=== PATIENT | female | born 1985 | race Caucasian/White ===

== ENCOUNTER 2016-12-11 09:11 | Emergency (ER) | payer OTHER ==
[~2016-12-11] VITALS: Ht 170.2 cm; Wt 73.0 kg
[2016-12-11 09:15] VITALS: Ht 170.2 cm; Wt 73.0 kg
[2016-12-11] MEDS ORDERED: morphine 4 MG/ML VIAL IV STA (09:48)
[2016-12-11] MEDS ORDERED: ONDANSETRON 4 MG INJ IV STA (09:48)
[2016-12-11] MEDS ORDERED: SOD CHLORIDE 0.9% 1,000 ML IV STA (09:48)
[2016-12-11 10:10] LABS: ADD SCAN DIFF NO
[2016-12-11 10:17] LABS: ADD UMIC YES; URINE BILIRUBIN (Dip) NEGATIVE (NEGATIVE); URINE BLOOD (Dip) TRACE (NEGATIVE); URINE COLOR LT. YELLOW (YELLOW); URINE GLUCOSE (Dip) NEGATIVE (NEGATIVE); URINE KETONES (Dip) NEGATIVE (NEGATIVE); URINE LEUKOCYTE ESTERASE (Dip) NEGATIVE (NEGATIVE); URINE NITRITE (Dip) NEGATIVE (NEGATIVE); URINE TOTAL PROTEIN (Dip) NEGATIVE (NEGATIVE); URINE UROBILINOGEN (Dip) 0.2 E.U./dL (0.1-1.0)
--- NOTE | 2016-12-11 10:20 | ERD ---
ER Documentation Chief Complaint Date/Time DATE: 12/11/16 TIME: 10:18 Chief Complaint RLQ ABD PAIN WITH NAUSEA SINCE YESTERDAY HPI 31-year-old female otherwise healthy comes emergency department with right lower quadrant abdominal pain with nausea that started last night. He describes as constant pain, moderate, localized, she reports that she has had some tactile fevers at home. She reports loose stools that started last night as well. Patient states that she also has had some congestion, and cough with this. Her last food intake was at 9 PM last night she took Advil this morning at 8:30 AM. ROS All systems reviewed and are negative except as per history of present illness. Medications Home Meds Active Scripts Ondansetron (Ondansetron Odt) 4 Mg Tab.rapdis, 4 MG PO Q6H Y for NAUSEA AND/OR VOMITING, #10 TAB Prov:EDDIE STEELE PA-C 12/11/16 PMhx/Soc Medical and Surgical Hx: pt denies Medical Hx, pt denies Surgical Hx Hx Alcohol Use: No Hx Substance Use: No Hx Tobacco Use: No Smoking Status: Never smoker Physical Exam Vitals Vital Signs Date Time Temp Pulse Resp B/P Pulse Ox O2 Delivery O2 Flow Rate FiO2 12/11/16 09:15 98.1 88 18 122/64 97 Physical Exam General: Well-developed, well-nourished. The patient appears in no acute distress. HEENT: Head is normocephalic, atraumatic. No scleral icterus. Neck: Supple. Nontender. Lungs: Clear to auscultation. Normal air movement. Heart: Regular rate and rhythm. S1 and S2 are normal. No murmurs, gallops, or rubs. Abdomen: Soft, tender in the rightmid-to lower quadrant without rebound pain, nondistended. Bowel sounds are normoactive. Negative Serrano sign. Extremities: No clubbing or cyanosis. Normal pulses. Moving extremities x 4. No weakness. Neurologic: Alert and oriented 3. No focal deficits. Skin: Normal turgor. No rash or lesions. Result Diagram: 12/11/16 1000 12/11/16 1000 Results 24 hrs Laboratory Tests Test 12/11/16 09:55 12/11/16 10:00 Urine Color LT. YELLOW Urine Clarity CLEAR Urine pH 6.0 Urine Specific [place] 1.010 Urine Ketones NEGATIVE Urine Nitrite NEGATIVE Urine Bilirubin NEGATIVE Urine Urobilinogen 0.2 E.U./dL Urine Leukocyte Esterase NEGATIVE Urine Microscopic RBC 0-2/HPF Urine Microscopic WBC NONE SEEN/HPF Urine Squamous Epithelial Cells FEW Urine Bacteria OCCASIONAL Urine Hemoglobin TRACE Urine Glucose NEGATIVE% Urine Total Protein NEGATIVE White Blood Count 14.010^3/ul Red Blood Count 4.3910^6/ul Hemoglobin 13.1g/dl Hematocrit 39.2% Mean Corpuscular Volume 89.3fl Mean Corpuscular Hemoglobin 29.8pg Mean Corpuscular Hemoglobin Concent 33.4g/dl Red Cell Distribution Width 12.9% Platelet Count 08627^3/UL Mean Platelet Volume 9.5fl Neutrophils % 81.5% Lymphocytes % 9.0% Monocytes % 7.8% Eosinophils % 0.9% Basophils % 0.4% Nucleated Red Blood Cells % 0.0/100WBC Neutrophils # 11.410^3/ul Lymphocytes # 1.310^3/ul Monocytes # 1.110^3/ul Eosinophils # 0.110^3/ul Basophils # 0.110^3/ul Nucleated Red Blood Cells # 0.010^3/ul Sodium Level 139mmol/L Potassium Level 4.3mmol/L Chloride Level 103mmol/L Carbon Dioxide Level 25mmol/L Anion Gap 15 Blood Urea Nitrogen 13mg/dl Creatinine 0.70mg/dl Glucose Level 85mg/dl Calcium Level 8.8mg/dl Total Bilirubin 0.2mg/dl Direct Bilirubin 0.00mg/dl Indirect Bilirubin 0.2mg/dl Aspartate Amino Transf (AST/SGOT) 18IU/L Alanine Aminotransferase (ALT/SGPT) 26IU/L Alkaline Phosphatase 55IU/L Total Protein 6.2g/dl Albumin 3.8g/dl Globulin 2.40g/dl Albumin/Globulin Ratio 1.58 Lipase 139U/L Current Medications Medications (Trade) Dose Ordered Sig/Kristan Route PRN Reason Start Time Stop Time Status Last Admin Dose Admin Sodium Chloride (NS) 1,000 ml @ 1,000 mls/hr Q1H STAT IV 12/11/16 09:48 12/11/16 10:47 DC 12/11/16 10:13 Morphine Sulfate (morphine) 4 mg ONCE STAT IV 12/11/16 09:48 12/11/16 09:50 DC 12/11/16 10:14 Ondansetron HCl (Zofran Inj) 4 mg ONCE STAT IV 12/11/16 09:48 12/11/16 09:50 DC 12/11/16 10:12 PROCEDURE: CT Abdomen and Pelvis without contrast. CLINICAL INDICATION: Right lower quadrant pain. TECHNIQUE: CT scan of the abdomen and pelvis without contrast was performed on a multidetector high-resolution CT scanner. The patient was scanned without intravenous contrast. Coronal and sagittal reformatted images were obtained from the axial source images. Images were reviewed on a high-resolution PACS workstation. The total exam CTDI equals 10.95 mGy and the total exam DLP equals 695.02 mGy-cm. One or more of the following dose reduction techniques were used: Automated exposure control. Adjustment of the mA and/or kV according to patient size. Use of iterative reconstruction technique. COMPARISON: None FINDINGS: CT abdomen: The lung bases are clear. The heart size is normal, without pericardial thickening or effusion. The liver is normal in size and density without focal mass or intrahepatic biliary dilatation. The spleen is normal in size and homogeneous in density. The stomach is partially collapsed, but is grossly unremarkable. The pancreas as visualized is normal. The gallbladder is unremarkable. There is no evidence for biliary dilatation. The adrenal glands are symmetric and normal. The kidneys are symmetrically unremarkable as well. No renal calculus or obstructive uropathy or mass lesion is seen. The aorta is of normal caliber. There is no retroperitoneal lymphadenopathy. The debra hepatis region is clear. The bowel and mesentery, as visualized, are equally unremarkable. CT pelvis: The small bowel loops situated within the pelvis are unremarkable. There is a normal appendix. The pelvic organs are normal. The pelvic sidewalls and inguinal regions are clear. The sigmoid colon and rectum are unremarkable. No mass, lymphadenopathy, or free fluid is seen. No acute inflammation is seen. No osteolytic or osteoblastic lesion is detected. IMPRESSION: 1. No mass, lymphadenopathy, or focal acute inflammatory process is identified. 2. Normal appendix. RPTAT: BB .Yordan Katz MD, Date Time Electronically viewed and signed by .Yordan Katz MD, on 12/11/2016 10:49 .O/ CC: EDDIE STEELE PA-C Procedures/MDM ED course: Patient had an IV line established, blood and urine were obtained, she was given morphine 4 mg and Zofran 4 mg IV. Patient was given normal saline 1 L as well. She was kept n.p.o. MDM: 31-year-old female comes emergency department with congestion, right lower quadrant abdominal pain, nausea, and loose stools. She likely presents with a viral syndrome as her CT scan of the abdomen and pelvis was negative for acute appendicitis. Patient's abdominal pain was noted to be in the right lower abdomen, without any rebound pain or peritoneal signs. She will be asked to take Tylenol for pain, Zofran will be given for nausea and recheck with her primary care doctor in 1-2 days per Departure Diagnosis: Primary Impression: Abdominal pain Condition: Good EDDIE STEELE PA-C December 11, 2016 10:20
[2016-12-11 10:25] LABS: ALBUMIN 3.8 g/dl (3.3-4.9); BASOPHIL # 0.1 10^3/ul (0.0-0.1); BASOPHILS % 0.4 % (0.0-2.0); EOSINOPHILS # 0.1 10^3/ul (0.0-0.5); EOSINOPHILS % 0.9 % (0.0-7.0); HEMATOCRIT 39.2 % (37.0-47.0); HEMOGLOBIN 13.1 g/dl (12.0-16.0); LYMPHOCYTES # 1.3 10^3/ul (0.8-2.9); MEAN CORPUSCULAR HEMOGLOBIN 29.8 pg (29.0-33.0); MEAN CORPUSCULAR HGB CONC 33.4 g/dl (32.0-37.0); MEAN CORPUSCULAR VOLUME 89.3 fl (82.0-101.0); MEAN PLATELET VOLUME 9.5 fl (7.4-10.4); MONOCYTE # 1.1 10^3/ul (0.3-0.9); MONOCYTES % 7.8 % (0.0-11.0); NEUTROPHIL # 11.4 10^3/ul (1.6-7.5); NEUTROPHILS % 81.5 % (39.0-77.0); PLATELET COUNT 340 10^3/UL (140-415); RED BLOOD COUNT 4.39 10^6/ul (4.20-5.40); RED CELL DISTRIBUTION WIDTH 12.9 % (11.5-14.5)
[2016-12-11 10:26] LABS: POTASSIUM 4.3 mmol/L (3.5-5.1)
[2016-12-11 10:28] LABS: ALBUMIN/GLOBULIN RATIO 1.58; BILIRUBIN,INDIRECT 0.2 mg/dl (0-1.1); BILIRUBIN,TOTAL 0.2 mg/dl (0.2-1.3); CREATININE 0.7 mg/dl (0.44-1.00); TOTAL PROTEIN 6.2 g/dl (6.1-8.1)
[2016-12-11 10:29] LABS: CALCIUM 8.8 mg/dl (8.4-10.2)
[2016-12-11 10:40] LABS: SQUAMOUS EPITHELIAL CELL,UR FEW; URINE RBCS 0-2 /HPF (0)
[2016-12-11 10:41] LABS: BACTERIA,URINE OCCASIONAL
--- NOTE | 2016-12-11 10:49 | RADRPT ---
PROCEDURE: CT Abdomen and Pelvis without contrast. CLINICAL INDICATION: Right lower quadrant pain. TECHNIQUE: CT scan of the abdomen and pelvis without contrast was performed on a multidetector hig h-resolution CT scanner. The patient was scanned without intravenous contrast. Coronal and sagittal reformatted images were obtained from the axial source images. Images were reviewed on a high-resol [employer] PACS workstation. The total exam CTDI equals 10.95 mGy and the total exam DLP equals 695.02 mG y-cm. One or more of the following dose reduction techniques were used: Automated exposure control. Adjustment of the mA and/or kV according to patient size. Use of iterative reconstruction technique. COMPARISON: None FINDINGS: CT abdomen: The lung bases are clear. The heart size is normal, without pericardial thickening or effusion. Th e liver is normal in size and density without focal mass or intrahepatic biliary dilatation. The sp jamil is normal in size and homogeneous in density. The stomach is partially collapsed, but is gross ly unremarkable. The pancreas as visualized is normal. The gallbladder is unremarkable. There is n o evidence for biliary dilatation. The adrenal glands are symmetric and normal. The kidneys are sy mmetrically unremarkable as well. No renal calculus or obstructive uropathy or mass lesion is seen. The aorta is of normal caliber. There is no retroperitoneal lymphadenopathy. The debra hepatis reg ion is clear. The bowel and mesentery, as visualized, are equally unremarkable. CT pelvis: The small bowel loops situated within the pelvis are unremarkable. There is a normal appendix. The p elvic organs are normal. The pelvic sidewalls and inguinal regions are clear. The sigmoid colon an d rectum are unremarkable. No mass, lymphadenopathy, or free fluid is seen. No acute inflammation is seen. No osteolytic or osteoblastic lesion is detected. IMPRESSION: 1. No mass, lymphadenopathy, or focal acute inflammatory process is identified. 2. Normal appendix. RPTAT: BB .Yordan Katz MD, MD Date Time Electronically viewed and signed by .Yordan Katz MD, MD on 12/11/2016 10:49 .O/
[2016-12-11] MEDS ORDERED: ONDA4TAB14 PO (11:10)
== END 2016-12-11 11:16 | disposition home or self-care (01) ==
LOC: FTE 09:11
DX: R10.31 Right lower quadrant pain (principal); R40.2252 Coma scale, best verbal response, oriented, at arrival to emergency department; R11.0 Nausea; R40.2142 Coma scale, eyes open, spontaneous, at arrival to emergency department; R40.2362 Coma scale, best motor response, obeys commands, at arrival to emergency department
CPT/HCPCS: 36415; 74176; 80053; 81001; 83690; 85025; 96374; 96375; 99285; J2270; J2405; J7030